=== PATIENT | female | born 1965 | race Caucasian/White ===

== ENCOUNTER 2017-06-02 15:20 | Inpatient (IN) | payer OTHER ==
[~2017-06-02 15:20] MED LIST: MIDAZOLAM 1 MG/ML 2 ML INJ
[2017-06-02] MEDS: IPRATROPIUM (NEB) 0.5 MG/2.5 ML AMP HHN (16:21)
[2017-06-02] MEDS: LEVALBUTEROL (NEB) 1.25 MG/0.5 ML AMP HHN (16:21)
[2017-06-02 16:22] LABS: ADD MAN DIFF? NO
[2017-06-02 16:25] LABS: WHITE BLOOD COUNT 12.2 10^3/ul (4.8-10.8)
[2017-06-02 16:25] LABS: BASOPHILS % 0.2 % (0.0-2.0); EOSINOPHILS % 0.3 % (0.0-7.0); HEMATOCRIT 38.9 % (37.0-47.0); HEMOGLOBIN 12.8 g/dl (12.0-16.0); LYMPHOCYTES # 1.8 10^3/ul (0.8-2.9); LYMPHOCYTES % 14.3 % (15.0-51.0); MEAN CORPUSCULAR HEMOGLOBIN 28.2 pg (29.0-33.0); MEAN CORPUSCULAR HGB CONC 32.9 g/dl (32.0-37.0); MEAN CORPUSCULAR VOLUME 85.7 fl (82.0-101.0); MEAN PLATELET VOLUME 10.6 fl (7.4-10.4); MONOCYTES % 8.5 % (0.0-11.0); NEUTROPHIL # 9.3 10^3/ul (1.6-7.5); NEUTROPHILS % 76.3 % (39.0-77.0); PLATELET COUNT 316 10^3/UL (140-415); RED BLOOD COUNT 4.54 10^6/ul (4.20-5.40); RED CELL DISTRIBUTION WIDTH 15.9 % (11.5-14.5)
[2017-06-02 16:42] LABS: ALANINE AMINOTRANSFERASE 44 IU/L (13-69); ALBUMIN 4.5 g/dl (3.3-4.9); ALBUMIN/GLOBULIN RATIO 1.32; ALKALINE PHOSPHATASE 60 IU/L (42-121); ANION GAP 16 (8-16); ASPARTATE AMINO TRANSFERASE 37 IU/L (15-46); BILIRUBIN,INDIRECT 0.4 mg/dl (0-1.1); BILIRUBIN,TOTAL 0.4 mg/dl (0.2-1.3); BLOOD UREA NITROGEN 18 mg/dl (7-20); CALCIUM 9.3 mg/dl (8.4-10.2); CARBON DIOXIDE 22 mmol/L (21-31); CHLORIDE 104 mmol/L (97-110); CREATININE 0.68 mg/dl (0.44-1.00); GLUCOSE 147 mg/dl (70-220); POTASSIUM 4.1 mmol/L (3.5-5.1); SODIUM 138 mmol/L (135-144); TOTAL PROTEIN 7.9 g/dl (6.1-8.1)
[2017-06-02 16:46] LABS: INR 0.99; PROTIME 13.2 Sec (11.9-14.9)
[2017-06-02 16:47] LABS: PARTIAL THROMBOPLASTIN TIME 36.8 Sec (25.0-35.0)
[2017-06-02 16:49] LABS: D-DIMER 1984.46 ng/ml (<460)
[2017-06-02 16:57] LABS: LACTIC ACID 1.7 mmol/L (0.5-2.0)
[2017-06-02 17:05] LABS: TROPONIN-I 0.238 ng/ml (0.00-0.12)
[2017-06-02] MEDS ORDERED: DILTIAZEM 25 MG INJ ×3 (17:15→17:27)
[2017-06-02] MEDS: MIDAZOLAM 1 MG/ML 2 ML INJ IV (17:20)
[2017-06-02] MEDS ORDERED: AMIODARONE 150MG/D5W BOLUS 100 ML (17:20)
[2017-06-02] MEDS: DILTIAZEM 25 MG INJ IV ×3 (17:22→20:32)
[2017-06-02] MEDS: HEPARIN 1000 UNITS/ML 10 ML INJ IV (17:48)
[2017-06-02] MEDS: HEPARIN 25000 UNITS/250 ML 250 ML IV (17:56)
[2017-06-02] MEDS ORDERED: ASPIRIN 300 MG SUPP PR (18:00)
[2017-06-02] MEDS ORDERED: HEPARIN 1000 UNITS/ML 10 ML INJ IV (18:00)
[2017-06-02] MEDS: DILTIAZEM-D5W 125MG/125ML DRIP 125 ML IV ×2 (18:00→20:22)
[2017-06-02] MEDS: ASPIRIN 325 MG TAB PO (18:08)
[2017-06-02] MEDS: SOD CHLORIDE 0.9% 100 ML (18:17)
[2017-06-02] MEDS: IOHEXOL 100 ML ×2 (18:17→19:23)
[2017-06-02] MEDS ORDERED: morphine 2 MG INJ IV (19:00)
[2017-06-02] MEDS ORDERED: ALBUTEROL/IPRATROPIUM (NEB) 3 ML AMP HHN (19:00)
[2017-06-02] MEDS ORDERED: NACL 0.9% 3 ML SYG IV (19:00)
[2017-06-02] MEDS ORDERED: NITROGLYCERIN (SL) 0.4 MG TAB SL (19:00)
[2017-06-02] MEDS ORDERED: ACETAMINOPHEN 325 MG TAB PO (19:00)
[2017-06-02 19:34] LABS: LACTIC ACID 1.9 mmol/L (0.5-2.0)
[2017-06-02] MEDS: ALBUTEROL/IPRATROPIUM (NEB) 3 ML AMP HHN (20:00)
[2017-06-02 22:26] LABS: LACTIC ACID 1.8 mmol/L (0.5-2.0)
[2017-06-03 01:09] LABS: TROPONIN-I 0.203 ng/ml (0.00-0.12)
[2017-06-03] MEDS: METOPROLOL 25 MG TAB PO ×2 (03:06→15:58)
[2017-06-03 05:55] LABS: ADD MAN DIFF? NO
[2017-06-03 06:06] LABS: WHITE BLOOD COUNT 13.3 10^3/ul (4.8-10.8)
[2017-06-03 06:06] LABS: BASOPHIL # 0.1 10^3/ul (0.0-0.1); BASOPHILS % 0.5 % (0.0-2.0); EOSINOPHILS % 0.3 % (0.0-7.0); HEMATOCRIT 41.4 % (37.0-47.0); HEMOGLOBIN 13.7 g/dl (12.0-16.0); LYMPHOCYTES # 2.1 10^3/ul (0.8-2.9); LYMPHOCYTES % 16.1 % (15.0-51.0); MEAN CORPUSCULAR HEMOGLOBIN 28.1 pg (29.0-33.0); MEAN CORPUSCULAR HGB CONC 33.1 g/dl (32.0-37.0); MEAN PLATELET VOLUME 10.4 fl (7.4-10.4); MONOCYTE # 1.1 10^3/ul (0.3-0.9); MONOCYTES % 8.3 % (0.0-11.0); NEUTROPHIL # 9.9 10^3/ul (1.6-7.5); NEUTROPHILS % 74.5 % (39.0-77.0); PLATELET COUNT 329 10^3/UL (140-415); RED BLOOD COUNT 4.87 10^6/ul (4.20-5.40); RED CELL DISTRIBUTION WIDTH 15.7 % (11.5-14.5)
[2017-06-03 06:30] LABS: ALANINE AMINOTRANSFERASE 39 IU/L (13-69); ALBUMIN 4.1 g/dl (3.3-4.9); ALBUMIN/GLOBULIN RATIO 1.13; ALKALINE PHOSPHATASE 59 IU/L (42-121); ANION GAP 16 (8-16); ASPARTATE AMINO TRANSFERASE 38 IU/L (15-46); BILIRUBIN,INDIRECT 0.6 mg/dl (0-1.1); BILIRUBIN,TOTAL 0.6 mg/dl (0.2-1.3); BLOOD UREA NITROGEN 13 mg/dl (7-20); CALCIUM 9.1 mg/dl (8.4-10.2); CARBON DIOXIDE 21 mmol/L (21-31); CHLORIDE 107 mmol/L (97-110); CHOL/HDL RATIO 3.6 RATIO; CHOLESTEROL 210 mg/dl (100-200); CREATININE 0.68 mg/dl (0.44-1.00); GLUCOSE 177 mg/dl (70-220); HDL CHOLESTEROL 58 mg/dl (37-92); LDL CHOLESTEROL,CALCULATED 135 mg/dl; POTASSIUM 3.5 mmol/L (3.5-5.1); SODIUM 140 mmol/L (135-144); TOTAL PROTEIN 7.7 g/dl (6.1-8.1); TRIGLYCERIDES 87 mg/dl (0-149)
[2017-06-03 06:30] LABS: TROPONIN-I 0.117 ng/ml (0.00-0.12)
[2017-06-03] MEDS: ALBUTEROL/IPRATROPIUM (NEB) 3 ML AMP HHN (07:55)
[2017-06-03 07:57] LABS: INR 1.07; PT RATIO 1.1
[2017-06-03 07:58] LABS: PARTIAL THROMBOPLASTIN TIME 50.4 Sec (25.0-35.0)
[2017-06-03] MEDS: DILTIAZEM-D5W 125MG/125ML DRIP 125 ML IV (09:15)
[2017-06-03] MEDS ORDERED: DILTIAZEM 25 MG INJ (09:47)
[2017-06-03] MEDS ORDERED: METOPROLOL 5 MG INJ ×2 (09:49→14:50)
[2017-06-03] MEDS ORDERED: DILTIAZEM-D5W 125MG/125ML DRIP 125 ML IV (10:00)
[2017-06-03] MEDS ORDERED: HEPARIN 1000 UNITS/ML 10 ML INJ IV (10:00)
[2017-06-03] MEDS ORDERED: HEPARIN 25000 UNITS/250 ML 250 ML IV (10:00)
[2017-06-03] MEDS: METOPROLOL 5 MG INJ IV ×2 (10:52→18:34)
[2017-06-03] MEDS: FUROSEMIDE 20 MG INJ IV (11:46)
[2017-06-03] MEDS: DIAZEPAM 5 MG TAB PO (11:46)
[2017-06-03] MEDS: ASPIRIN 81 MG TAB PO (11:46)
[2017-06-03] MEDS: DIPHENHYDRAMINE 50 MG CAP PO (11:46)
[2017-06-03] MEDS: FAMOTIDINE 20 MG TAB PO ×3 (11:46→20:14)
[2017-06-03] MEDS: SPIRONOLACTONE 25 MG TAB PO (11:47)
[2017-06-03] MEDS: MAGNESIUM SULFATE 2 GM/50 ML 50 ML IVPB (11:47)
[2017-06-03] MEDS: VALSARTAN 80 MG TAB PO (11:48)
[2017-06-03] MEDS ORDERED: HEPARIN 1000 UNITS/ML 10 ML INJ (13:26)
[2017-06-03] MEDS ORDERED: LIDOCAINE 1% (MDV) 20 ML INJ (13:26)
[2017-06-03] MEDS ORDERED: FENTAnyl 50 MCG/ML VIAL (13:27)
[2017-06-03] MEDS ORDERED: VERAPAMIL 5 MG INJ (13:27)
[2017-06-03] MEDS ORDERED: NITROGLYCERIN (IC) 100 MCG/ML INJ (13:27)
[2017-06-03] MEDS ORDERED: MIDAZOLAM 1 MG/ML 2 ML INJ (13:27)
[2017-06-03] MEDS: DILTIAZEM 25 MG INJ IV (15:53)
[2017-06-03] MEDS: ATORVASTATIN 80 MG TAB PO ×2 (15:53→20:14)
[2017-06-03] MEDS: LEVOTHYROXINE 25 MCG TAB PO (15:54)
[2017-06-03] MEDS: SOD CHLORIDE 0.9% 1,000 ML IV (15:57)
[2017-06-03] MEDS: HYDROCODONE/APAP (5/325) TAB PO (18:24)
[2017-06-03] MEDS: VITAMIN A & D 5 GM OINT PACKET TOP (18:32)
[2017-06-03] MEDS: APIXABAN 5 MG TABLET PO (20:14)
[2017-06-03] MEDS: LORAZEPAM 0.5 MG TAB PO (20:17)
[2017-06-04 05:28] LABS: ADD MAN DIFF? NO
[2017-06-04 05:41] LABS: WHITE BLOOD COUNT 10.3 10^3/ul (4.8-10.8)
[2017-06-04 05:42] LABS: BASOPHIL # 0.1 10^3/ul (0.0-0.1); BASOPHILS % 0.5 % (0.0-2.0); EOSINOPHILS # 0.2 10^3/ul (0.0-0.5); EOSINOPHILS % 1.8 % (0.0-7.0); HEMATOCRIT 39.4 % (37.0-47.0); HEMOGLOBIN 12.8 g/dl (12.0-16.0); LYMPHOCYTES # 2.6 10^3/ul (0.8-2.9); LYMPHOCYTES % 24.9 % (15.0-51.0); MEAN CORPUSCULAR HGB CONC 32.5 g/dl (32.0-37.0); MEAN CORPUSCULAR VOLUME 86.2 fl (82.0-101.0); MEAN PLATELET VOLUME 10.7 fl (7.4-10.4); MONOCYTES % 9.8 % (0.0-11.0); NEUTROPHIL # 6.4 10^3/ul (1.6-7.5); NEUTROPHILS % 62.5 % (39.0-77.0); PLATELET COUNT 291 10^3/UL (140-415); RED BLOOD COUNT 4.57 10^6/ul (4.20-5.40)
[2017-06-04] MEDS: LEVOTHYROXINE 25 MCG TAB PO (06:01)
[2017-06-04 06:20] LABS: ANION GAP 15 (8-16); BLOOD UREA NITROGEN 26 mg/dl (7-20); CARBON DIOXIDE 23 mmol/L (21-31); CHLORIDE 106 mmol/L (97-110); CREATININE 0.83 mg/dl (0.44-1.00); GLUCOSE 127 mg/dl (70-220); MAGNESIUM 2.4 mg/dl (1.7-2.5); PHOSPHORUS 2.7 mg/dl (2.5-4.9); POTASSIUM 3.2 mmol/L (3.5-5.1); SODIUM 141 mmol/L (135-144)
[2017-06-04] MEDS: METOPROLOL 5 MG INJ IV (07:56)
[2017-06-04] MEDS: POTASSIUM CHLORIDE (SR) 20 MEQ TAB PO (08:06)
[2017-06-04] MEDS: APIXABAN 5 MG TABLET PO ×2 (08:07→20:49)
[2017-06-04] MEDS: BISACODYL (EC) 5 MG TAB PO (08:07)
[2017-06-04] MEDS: SPIRONOLACTONE 25 MG TAB PO (08:07)
[2017-06-04] MEDS: VITAMIN A & D 5 GM OINT PACKET TOP (08:07)
[2017-06-04] MEDS: FAMOTIDINE 20 MG TAB PO ×2 (08:07→20:49)
[2017-06-04] MEDS: ASPIRIN 81 MG TAB PO (08:07)
[2017-06-04] MEDS: VALSARTAN 80 MG TAB PO (08:13)
[2017-06-04] MEDS: AMIODARONE 150MG/D5W BOLUS 100 ML IV (08:20)
[2017-06-04] MEDS: METOPROLOL (XL) 100 MG TAB PO (08:23)
[2017-06-04] MEDS: AMIODARONE 900 MG in DEXTROSE 5% 482 ML IV (08:33)
[2017-06-04] MEDS ORDERED: POTASSIUM CHLORIDE 20 MEQ POWDER FOR ORAL SOLN PO (09:30)
[2017-06-04] MEDS: ATORVASTATIN 80 MG TAB PO (20:49)
[2017-06-04] MEDS: LORAZEPAM 0.5 MG TAB PO (20:52)
[2017-06-05] MEDS: METOPROLOL 5 MG INJ IV (04:05)
[2017-06-05 05:40] LABS: ADD MAN DIFF? NO
[2017-06-05 06:01] LABS: WHITE BLOOD COUNT 11.2 10^3/ul (4.8-10.8)
[2017-06-05 06:01] LABS: BASOPHIL # 0.1 10^3/ul (0.0-0.1); BASOPHILS % 0.4 % (0.0-2.0); EOSINOPHILS # 0.3 10^3/ul (0.0-0.5); EOSINOPHILS % 2.2 % (0.0-7.0); HEMATOCRIT 38.5 % (37.0-47.0); HEMOGLOBIN 12.8 g/dl (12.0-16.0); LYMPHOCYTES # 2.1 10^3/ul (0.8-2.9); LYMPHOCYTES % 18.3 % (15.0-51.0); MEAN CORPUSCULAR HEMOGLOBIN 28.6 pg (29.0-33.0); MEAN CORPUSCULAR HGB CONC 33.2 g/dl (32.0-37.0); MEAN CORPUSCULAR VOLUME 86.1 fl (82.0-101.0); MEAN PLATELET VOLUME 11.3 fl (7.4-10.4); MONOCYTES % 8.7 % (0.0-11.0); NEUTROPHIL # 7.9 10^3/ul (1.6-7.5); PLATELET COUNT 269 10^3/UL (140-415); RED BLOOD COUNT 4.47 10^6/ul (4.20-5.40); RED CELL DISTRIBUTION WIDTH 16.1 % (11.5-14.5)
[2017-06-05] MEDS: LEVOTHYROXINE 25 MCG TAB PO (06:08)
[2017-06-05 06:17] LABS: ANION GAP 16 (8-16); BLOOD UREA NITROGEN 26 mg/dl (7-20); CALCIUM 9.7 mg/dl (8.4-10.2); CARBON DIOXIDE 21 mmol/L (21-31); CHLORIDE 107 mmol/L (97-110); CREATININE 0.89 mg/dl (0.44-1.00); GLUCOSE 142 mg/dl (70-220); PHOSPHORUS 2.9 mg/dl (2.5-4.9); POTASSIUM 3.5 mmol/L (3.5-5.1); SODIUM 140 mmol/L (135-144)
[2017-06-05] MEDS: FAMOTIDINE 20 MG TAB PO ×2 (08:18→21:39)
[2017-06-05] MEDS: SPIRONOLACTONE 25 MG TAB PO (08:18)
[2017-06-05] MEDS: VITAMIN A & D 5 GM OINT PACKET TOP (08:18)
[2017-06-05] MEDS: APIXABAN 5 MG TABLET PO ×2 (08:19→21:39)
[2017-06-05] MEDS: VALSARTAN 80 MG TAB PO ×2 (08:19→21:38)
[2017-06-05] MEDS: ASPIRIN 81 MG TAB PO (08:19)
[2017-06-05] MEDS: METOPROLOL (XL) 100 MG TAB PO (08:25)
[2017-06-05] MEDS: LEVOFLOXACIN 500 MG TAB PO (10:09)
[2017-06-05] MEDS: POTASSIUM CHLORIDE (SR) 20 MEQ TAB PO (10:09)
[2017-06-05] MEDS: ONDANSETRON 4 MG INJ IV (11:39)
[2017-06-05] MEDS: GUAIFENESIN/CODEINE 5ML CUP PO ×2 (12:02→21:38)
[2017-06-05] MEDS: AMIODARONE 200 MG TAB PO (17:25)
[2017-06-05] MEDS: ATORVASTATIN 80 MG TAB PO (21:39)
[2017-06-05] MEDS: LORAZEPAM 0.5 MG TAB PO (23:59)
[2017-06-06] MEDS: LEVOFLOXACIN 500 MG TAB PO (05:25)
[2017-06-06] MEDS: LEVOTHYROXINE 25 MCG TAB PO (05:25)
[2017-06-06] MEDS: AMIODARONE 200 MG TAB PO ×2 (07:00→20:59)
[2017-06-06 07:01] LABS: ADD MAN DIFF? NO
[2017-06-06 07:06] LABS: BASOPHIL # 0.1 10^3/ul (0.0-0.1); BASOPHILS % 0.5 % (0.0-2.0); EOSINOPHILS # 0.3 10^3/ul (0.0-0.5); EOSINOPHILS % 2.8 % (0.0-7.0); HEMATOCRIT 36.2 % (37.0-47.0); LYMPHOCYTES # 2.1 10^3/ul (0.8-2.9); LYMPHOCYTES % 22.4 % (15.0-51.0); MEAN CORPUSCULAR HEMOGLOBIN 28.7 pg (29.0-33.0); MEAN CORPUSCULAR HGB CONC 33.1 g/dl (32.0-37.0); MEAN CORPUSCULAR VOLUME 86.6 fl (82.0-101.0); MEAN PLATELET VOLUME 11.2 fl (7.4-10.4); MONOCYTES % 10.9 % (0.0-11.0); NEUTROPHIL # 5.8 10^3/ul (1.6-7.5); PLATELET COUNT 249 10^3/UL (140-415); RED BLOOD COUNT 4.18 10^6/ul (4.20-5.40); RED CELL DISTRIBUTION WIDTH 16.2 % (11.5-14.5)
[2017-06-06 07:06] LABS: WHITE BLOOD COUNT 9.2 10^3/ul (4.8-10.8)
[2017-06-06] MEDS: METOPROLOL 5 MG INJ IV (07:57)
[2017-06-06 08:03] LABS: ANION GAP 17 (8-16); BLOOD UREA NITROGEN 27 mg/dl (7-20); CALCIUM 8.8 mg/dl (8.4-10.2); CARBON DIOXIDE 20 mmol/L (21-31); CHLORIDE 107 mmol/L (97-110); CREATININE 0.86 mg/dl (0.44-1.00); GLUCOSE 98 mg/dl (70-220); MAGNESIUM 1.9 mg/dl (1.7-2.5); PHOSPHORUS 3.3 mg/dl (2.5-4.9); POTASSIUM 3.7 mmol/L (3.5-5.1); SODIUM 140 mmol/L (135-144)
[2017-06-06] MEDS: VITAMIN A & D 5 GM OINT PACKET TOP (08:49)
[2017-06-06] MEDS: VALSARTAN 80 MG TAB PO ×2 (08:50→21:00)
[2017-06-06] MEDS: METOPROLOL (XL) 100 MG TAB PO (08:50)
[2017-06-06] MEDS: SPIRONOLACTONE 25 MG TAB PO (08:50)
[2017-06-06] MEDS: APIXABAN 5 MG TABLET PO ×2 (08:50→20:57)
[2017-06-06] MEDS: FAMOTIDINE 20 MG TAB PO ×2 (08:50→20:57)
[2017-06-06] MEDS ORDERED: FAMOTIDINE 20 MG TAB PO (09:00)
[2017-06-06] MEDS: AMIODARONE 150MG/D5W BOLUS 100 ML IV (14:10)
[2017-06-06] MEDS: GUAIFENESIN/CODEINE 5ML CUP PO ×2 (18:42→22:54)
[2017-06-06] MEDS: ATORVASTATIN 80 MG TAB PO (20:57)
[2017-06-07] MEDS: LORAZEPAM 0.5 MG TAB PO (00:30)
[2017-06-07] MEDS: AMIODARONE 200 MG TAB PO ×2 (01:01→08:42)
[2017-06-07] MEDS: METOPROLOL 5 MG INJ IV (01:05)
[2017-06-07] MEDS: LEVOTHYROXINE 25 MCG TAB PO (05:36)
[2017-06-07] MEDS: LEVOFLOXACIN 500 MG TAB PO (05:37)
[2017-06-07 08:27] LABS: ADD MAN DIFF? NO
[2017-06-07 08:32] LABS: BASOPHILS % 0.4 % (0.0-2.0); EOSINOPHILS # 0.1 10^3/ul (0.0-0.5); EOSINOPHILS % 1.3 % (0.0-7.0); HEMATOCRIT 37.3 % (37.0-47.0); HEMOGLOBIN 12.1 g/dl (12.0-16.0); LYMPHOCYTES # 1.4 10^3/ul (0.8-2.9); MEAN CORPUSCULAR HEMOGLOBIN 28.1 pg (29.0-33.0); MEAN CORPUSCULAR HGB CONC 32.4 g/dl (32.0-37.0); MEAN CORPUSCULAR VOLUME 86.5 fl (82.0-101.0); MEAN PLATELET VOLUME 11.2 fl (7.4-10.4); MONOCYTE # 1.2 10^3/ul (0.3-0.9); MONOCYTES % 10.8 % (0.0-11.0); NEUTROPHIL # 7.9 10^3/ul (1.6-7.5); NEUTROPHILS % 73.9 % (39.0-77.0); PLATELET COUNT 300 10^3/UL (140-415); RED BLOOD COUNT 4.31 10^6/ul (4.20-5.40); RED CELL DISTRIBUTION WIDTH 15.9 % (11.5-14.5)
[2017-06-07 08:32] LABS: WHITE BLOOD COUNT 10.6 10^3/ul (4.8-10.8)
[2017-06-07] MEDS: APIXABAN 5 MG TABLET PO (08:41)
[2017-06-07] MEDS: FAMOTIDINE 20 MG TAB PO (08:41)
[2017-06-07] MEDS: VALSARTAN 80 MG TAB PO (08:41)
[2017-06-07] MEDS: VITAMIN A & D 5 GM OINT PACKET TOP (08:42)
[2017-06-07] MEDS: SPIRONOLACTONE 25 MG TAB PO (08:42)
[2017-06-07 09:04] LABS: ANION GAP 16 (8-16); BLOOD UREA NITROGEN 25 mg/dl (7-20); CARBON DIOXIDE 22 mmol/L (21-31); CHLORIDE 106 mmol/L (97-110); CREATININE 0.84 mg/dl (0.44-1.00); GLUCOSE 125 mg/dl (70-220); PHOSPHORUS 3.2 mg/dl (2.5-4.9); POTASSIUM 3.9 mmol/L (3.5-5.1); SODIUM 140 mmol/L (135-144)
[2017-06-07] MEDS: BISACODYL (EC) 5 MG TAB PO (10:23)
== END 2017-06-07 15:50 | disposition home or self-care (01) | DRG 280 ==
LOC: ICU 06-03 18:50 → TEL 06-05 15:27 → CCL 06-03 13:42 → E/R 15:20 → SDS 06-03 13:42 → ICU 06-03 15:20 → SDS 06-03 15:20 → CCL 06-03 13:42 → REC 18:47 → ICU 06-03 15:20
PROC: 4A023N7 Measurement of Cardiac Sampling and Pressure, Left Heart, Percutaneous Approach (ICD-10-PCS; principal; 2017-06-03 13:30)
PROC: B211YZZ Fluoroscopy of Multiple Coronary Arteries using Other Contrast (ICD-10-PCS; 2017-06-03 13:30)
DX: I48.0 Paroxysmal atrial fibrillation (principal); I40.9 Acute myocarditis, unspecified; I21.4 Non-ST elevation (NSTEMI) myocardial infarction; I47.2 Ventricular tachycardia; I10 Essential (primary) hypertension; E03.9 Hypothyroidism, unspecified; I25.10 Atherosclerotic heart disease of native coronary artery without angina pectoris; E87.6 Hypokalemia; R05 Cough
CPT/HCPCS: 36415; 71045; 71275; 80048; 80053; 80061; 83605; 83735; 84100; 84443; 84484; 85025; 85378; 85610; 85730; 87040; 87081; 87400; 93005; 93306; 93458; 94640; 94664; 96365; 96367; 96375; 96376; 99291-25; J1940